=== PATIENT | female | born 1965 | race Caucasian/White ===

== ENCOUNTER 2022-09-10 22:41 | Emergency (ER) | payer MEDICAID ==
[~2022-09-10] VITALS: Ht 152.4 cm; Wt 77.7 kg
[2022-09-10] MEDS ORDERED: LISI-893 PO (22:48)
[2022-09-10] MEDS ORDERED: METF-1211 PO (22:48)
[2022-09-11 04:31] LABS: BASOPHILS % (AUTO) 0.9 % (0.0-2.0); EOSINOPHILS % (AUTO) 3.2 % (1.0-6.0); HEMATOCRIT 40.3 % (36-46); HEMOGLOBIN 13.5 g/dL (12.0-16.0); LYMPHOCYTES # (AUTO) 3.5 K/uL (1.0-4.8); MEAN CORPUSCULAR HGB CONC 33.5 G/dL (31.0-37.0); MEAN CORPUSCULAR VOLUME 87 fL (80-100); MONOCYTES # (AUTO) 0.6 K/uL (0.1-1.0); MONOCYTES % (AUTO) 6.5 % (2.0-9.0); NEUTROPHILS # (AUTO) 4.1 K/uL (1.8-7.7); NEUTROPHILS % (AUTO) 48.4 % (40.0-70.0); PLATELET COUNT (AUTO) 257 K/uL (150-450); RED BLOOD CELL COUNT(AUTO) 4.65 MIL/uL (4.00-5.20); RED CELL DISTRIBUTION WIDTH 14.4 % (11.5-14.5)
[2022-09-11] MEDS ORDERED: IBUP-1492 PO (05:57)
[2022-09-11 06:00] VITALS: BP 132/70
== END 2022-09-11 07:12 | disposition home or self-care (01) ==
LOC: EMS 22:48
DX: R07.89 Other chest pain (principal); E11.9 Type 2 diabetes mellitus without complications; I10 Essential (primary) hypertension; Z98.890 Other specified postprocedural states
CPT/HCPCS: 71045; 84484; 85025; 93005; 99285; 36415-L1; 36415-TC